=== PATIENT | female | born 1990 | race African-American/Black ===

== ENCOUNTER 2022-08-13 09:51 | Emergency (ER) | payer OTHER, SELFPAY ==
[2022-08-13] VITALS (18 sets, daily range): BP systolic 107–147; BP diastolic 59–99; PULSE 80–100; RESP 15–23; TEMP 36.6; O2SAT 98–100
--- NOTE | 2022-08-13 10:28 | ED.HA ---
HPI - Headache General Chief Complaint: Headache Stated Complaint: migraine X2 days and abdominal pain, 18 weeks preg Time Seen by Provider: 08/13/22 10:07 History of Present Illness HPI Narrative: Patient is a 32-year-old female approximately 18 weeks gestation presenting with a migraine. Patient states that for the last day she has had a diffuse migraine. States that she has also had some lower abdominal pain. States that she was recently treated for a UTI and she is unsure if this has resolved. States that she saw her [employer] for the first time 4 days ago and an ultrasound was performed which was normal. She denies any vaginal bleeding. No nausea or vomiting. Denies numbness or weakness, vision changes, speech changes. No chest pain or shortness of breath. No leg swelling. Related Data Allergies Allergy/AdvReac Type Severity Reaction Status Date / Time No Known Allergies Allergy Verified 08/13/22 10:14 Review of Systems Review of Systems: All systems reviewed & are unremarkable except as noted in HPI and below Exam Narrative: GENERAL: Well-appearing, well-nourished, and in no acute distress. HEAD: Normocephalic, atraumatic. EYES: PERRLA and EOMI. ENT: Nares clear, no rhinorrhea or epistaxis. Mucous membranes moist. NECK: Supple. CHEST: Clear to auscultation. No respiratory distress. HEART: Regular rate and rhythm. No murmur heard. Normal peripheral pulses. ABDOMEN: Soft, appropriately gravid, mild lower bilateral abdominal tenderness, no guarding or rebound EXTREMITIES: Normal range of motion. No edema. SKIN: Warm, dry, no rash. NEURO: No focal deficits. Alert and oriented x3. PSYCH: Normal mood and affect. Course Vital Signs Vital signs: Vital Signs Temperature 97.8 F 08/13/22 10:10 Pulse Rate 100 08/13/22 10:10 Respiratory Rate 20 08/13/22 10:10 Blood Pressure 144/84 H 08/13/22 10:10 Pulse Oximetry 100 08/13/22 10:10 Oxygen Delivery Room Air 08/13/22 10:10 Temperature 97.8 F 08/13/22 10:10 Pulse Rate 83 08/13/22 13:48 Respiratory Rate 18 08/13/22 13:48 Blood Pressure 127/73 08/13/22 13:48 Pulse Oximetry 100 08/13/22 13:48 Oxygen Delivery Room Air 08/13/22 10:10 MDM - Headache MDM Narrative Medical decision making narrative: Patient is a 32-year-old female at approximately 18 weeks gestation presenting with migraine. Vitals within normal limits. Patient is well-appearing and in no acute distress. Exam is remarkable for the above. Neurologically intact. Her abdomen is soft and benign. Do not feel imaging is warranted at this time. We will check some basic labs, UA. Plan for fluids and Fioricet. heart tones 148. Patient with mild leukocytosis. Blood work is otherwise unremarkable. IV fluids are ongoing. Her UA shows a persistent UTI. I suspect the patient was not taking her Keflex as it was previously prescribed as she states that she just finished it a couple of days ago. We will send in a one-time dose of fosfomycin due to patient noncompliance. On reevaluation, the patient states that her migraine is almost resolved. She feels comfortable going home. Advised that she take the fosfomycin as prescribed. Advised that she follow-up closely with her PCP and OB. Appropriate return precautions given. Patient voiced understanding and is agreeable with plan. Discharged in stable condition Differential Diagnosis Differential diagnosis: Likely migraine, headache and other (Dehydration, UTI, second trimester ) Medical Records Attestation: I reviewed the patient's medical records. Lab Data Attestation: I reviewed the patient's lab results. 08/13/22 10:48 08/13/22 10:48 Labs: Lab Results 08/13/22 08/13/22 Range/Units 10:48 10:49 WBC 12.8 H (4.5-10.0) K/mm3 RBC 3.66 L (4.2-5.4) M/mm3 Hgb 10.0 L (12.0-15.0) g/dL Hct 30.1 L (37.0-47.0) % MCV 82.2 (80-100) fl MCH 27.3 (26-34)
[2022-08-13] MEDS: ACETAMINOPHEN/BUTALBITAL/CAFFEINE 325-50-40 MG TABLET (FIORICET) 2 TAB PO (10:52)
[2022-08-13 10:54] LABS: Basophils Percent Auto 0.2 % (0.2-1.2); Eosinophils Absolute Auto 0.1 K/mm3 (0-0.3); Eosinophils Percent Auto 1.1 % (0-4.4); Hematocrit 30.1 % (37.0-47.0); Immature Granulocyte Absolute 0.05 K/mm3 (0.00-0.031); Immature Granulocyte Percent A 0.4 % (0-0.5); Lymphocytes Absolute Auto 2.52 K/mm3 (0.9-3.2); Lymphocytes Percent Auto 19.7 % (18.3-44.2); Mean Corpuscular HGB Conc 33.2 g/dl (32-36); Mean Corpuscular Hemoglobin 27.3 pg (26-34); Mean Corpuscular Volume 82.2 fl (80-100); Mean Platelet Volume 9.4 fl (7.4-10.4); Monocytes Absolute Auto 0.5 K/mm3 (0.1-0.6); Monocytes Percent Auto 4.2 % (2.6-8.5); Neutrophils Absolute Auto 9.5 K/mm3 (1.3-6.7); Neutrophils Percent Auto 74.4 % (45.5-73.1); Platelet Count Result 390 k/mm3 (150-375); Red Blood Count 3.66 M/mm3 (4.2-5.4); Red Cell Distribution Width 14.4 % (11.5-14.5); White Blood Count 12.8 K/mm3 (4.5-10.0)
[2022-08-13] MEDS: SODIUM CHLORIDE 0.9% IV 1,000 ML 999 ML IV CONT ×2 (10:54→11:42)
[2022-08-13 11:17] LABS: Alanine Aminotransferase 16 U/L (6-35); Albumin Level 3.2 g/dL (3.5-5.1); Alkaline Phosphatase 61 U/L (38-126); Anion Gap 1 mmol/L (8-16); Aspartate Amino Transferase 19 U/L (14-36); Bilirubin,Total 0.3 mg/dL (0.2-1.3); Blood Urea Nitrogen 7 mg/dL (7-17); Calcium 8.7 mg/dL (8.4-10.2); Carbon Dioxide 24 mmol/L (22-30); Chloride 103 mmol/L (98-107); Estimated CRCL calculation 163 ml/min; Estimated Glomerular Filt Rate > 60; Glucose 232 mg/dL (65-110); Lipase 70 U/L (23-300); Potassium 3.4 mmol/L (3.4-5.0); Sodium 128 mmol/L (137-145)
[2022-08-13 11:27] LABS: Appearance Urine Turbid (Clear); Bacteria Urine 4+ /hpf; Bilirubin Urine Negative (Negative); Blood Urine Trace (Negative); Color Urine Yellow (Yellow); Glucose Urine UA Negative (Negative); Ketones Urine Trace mg/dL (Negative); Leukocyte Esterase Ur 3+ LEU/UL (Negative); Need Manual Microscopic Reviewed; Nitrate Urine Negative (Negative); Protein Urine 1+ mg/dL (Negative); RBC Urine 0-2 /hpf (0-2); Specific Grav Ur 1.021 (1.001-1.035); Squamous Epithelial Cell Urine Many /hpf (Few); WBC Urine >100 /hpf; pH Urine 5.5 (5.0-9.0)
[2022-08-13 11:45] LABS: Add Urine Microscopic? YES
== END 2022-08-13 13:50 | disposition home or self-care (01) ==
PROVIDERS: Emergency Provider Emergency Medicine
DX: O99.352 Diseases of the nervous system complicating pregnancy, second trimester (principal); G43.909 Migraine, unspecified, not intractable, without status migrainosus; O23.42 Unspecified infection of urinary tract in pregnancy, second trimester; N39.0 Urinary tract infection, site not specified; Z3A.18 18 weeks gestation of pregnancy
CPT/HCPCS: 36415; 80053; 81001; 83690; 84702; 85025; 87086; 87088; 96360; 96361; 99283; A9270; J7030